=== PATIENT | female | born 1950 | race American Indian/Alaskan Native ===

== ENCOUNTER 2017-01-15 06:50 | Day surgery (SDC) | payer MEDICARE ==
[2017-01-15 07:54] LABS: Basophils % (Auto) 0.7 % (0.0-1.8); Eosinophils % (Auto) 3.9 % (0.0-4.3); Hematocrit 28.5 % (30.3-42.9); Hemoglobin 9.4 gm/dl (10.1-14.3); Mean Corpuscular HGB Conc 33 % (30-34); Mean Corpuscular Hemoglobin 30 pg (28-32); Mean Corpuscular Volume 91 fl (79-97); Platelet Count 202 K/mm3 (140-440); Red Blood Count 3.14 M/mm3 (3.65-5.03); Red Cell Distribution Width 15.5 % (13.2-15.2); White Blood Count 4.4 K/mm3 (4.5-11.0)
[2017-01-15 08:06] LABS: INR 1.02 (0.87-1.13)
[2017-01-15 08:07] LABS: Partial Thromboplastin Time 32.7 Sec. (24.2-36.6)
[2017-01-15] MEDS ORDERED: VERSED IV ONE (08:29)
[2017-01-15] MEDS ORDERED: APRESOLINE ONE (08:29)
[2017-01-15] MEDS ORDERED: SUBLIMAZE IV ONE (08:29)
[2017-01-15 13:09] VITALS: BP 153/76
--- NOTE | 2017-01-15 13:47 | Cat Scan Report ---
CT BIOPSY RENAL LEFT HISTORY: Chronic kidney disease. DESCRIPTION OF PROCEDURE: Informed consent was obtained. Sterile technique was utilized. 1% lidocaine for skin anesthesia. Conscious sedation was accomplished with Versed and fentanyl. The patient was sedated for 12 minutes. Independent cardiorespiratory monitoring by RN. Intraobserver time of [address] guidance, a 17-gauge introducer needle was advanced to the inferior pole of the left kidney. Two 18-gauge core biopsies were obtained. No complications. IMPRESSION: Successful CT-guided biopsy at the inferior pole of the left kidney.
== END 2017-01-15 13:50 | disposition home or self-care (01) ==
LOC: OPU 06:50 → EDSTATUS 08:30 → OPU 13:50
PROVIDERS: ATTEND Internal Medicine Nephrology
DX: N18.3 Chronic kidney disease, stage 3 (moderate) (principal); Z87.891 Personal history of nicotine dependence; Z79.01 Long term (current) use of anticoagulants
CPT/HCPCS: 36415; 50200; 77012; 85025; 85610; 85730; J2250; J3010; J0360

== ENCOUNTER 2018-10-20 11:31 | Day surgery (SDC) | payer MEDICARE ==
[2018-10-20] MEDS ORDERED: HEPARIN/NS 5000 UNIT/500ML(CATH LAB) 500 ML IR ONE (13:42)
[2018-10-20] MEDS ORDERED: HEPARIN 10,000 UNITS/10 ML ONE (13:43)
[2018-10-20] MEDS ORDERED: XYLOCAINE 2% INFILTRATI ONE (13:43)
[2018-10-20] MEDS ORDERED: NACL 0.9% 250ML 250 ML ONE (13:48)
[2018-10-20] MEDS ORDERED: NACL 0.9% 500 ML 500 ML IV SCH (14:00)
[2018-10-20] MEDS ORDERED: ANCEF/STERILE WATER 2 GM/20 ML 2 GM/20 ML SYRINGE IV ONE (14:04)
[2018-10-20] MEDS: VERSED ONE ×2 (14:40→14:44)
[2018-10-20] MEDS: SUBLIMAZE ONE ×2 (14:40→14:47)
--- NOTE | 2018-10-20 15:12 | Short Stay Summary ---
Short Stay Documentation Date of service: 10/20/18 Narrative H&P: 68 year old female with ESRD and permcath malfunction. - History Principal diagnosis: permcath malfunction Past Medical History: dialysis Social history: no significant social history - Allergies and Medications Current Medications: Allergies amlodipine Allergy (Verified 01/15/17 07:47) Rash shellfish derived Adverse Reaction (Verified 01/15/17 08:15) GOUT Flare up Home Medications Medication Instructions Recorded Confirmed Last Taken Type Furosemide [Lasix TAB] 40 mg PO QDAY 09/11/14 10/20/18 10/20/18 08:30 History Ibuprofen [Advil 100 MG tab] 600 mg PO Q6H PRN 09/11/14 10/20/18 01/14/17 History glipiZIDE [Glucotrol] 10 mg PO BID 09/11/14 10/20/18 10/20/18 08:30 History Allopurinol [Zyloprim] 100 mg PO BID 10/20/18 10/20/18 10/20/18 08:30 History AtorvaSTATin [Lipitor] 20 mg PO QHS 10/20/18 10/20/18 10/19/18 History Carvedilol [Coreg] 25 mg PO BID 10/20/18 10/20/18 10/20/18 08:30 History Isosorbide Dinitrate 30 mg PO QDAY 10/20/18 10/20/18 10/20/18 08:30 History Losartan [Cozaar] 100 mg PO QDAY 10/20/18 10/20/18 10/20/18 08:30 History Omeprazole 40 mg PO QDAY 10/20/18 10/20/18 10/20/18 08:30 History cloNIDine [Catapres] 0.2 mg PO TID 10/20/18 10/20/18 10/20/18 08:30 History hydrALAZINE [Apresoline TAB] 100 mg PO TID 10/20/18 10/20/18 10/20/18 08:30 History Active Medications Sodium Chloride (Nacl 0.9% 500 Ml) 500 mls @ 50 mls/hr IV DIRECT MARTI - Physical exam General appearance: no acute distress Lungs: Normal air movement Extremities: normal temperature, normal color, abnormal (permcath without purulence or erythema, but nonfunctional) - Brief post op/procedure progress note Date of procedure: 10/20/18 Pre-op diagnosis: ESRD with permcath malfunction Post-op diagnosis: same Procedure: Permcath exchange Venography SVC angioplasty Anesthesia: local (w/ conscious sedation) Surgeon: KAYODE KLEIN Estimated blood loss: minimal Condition: stable - Hospital course Hospital course: Ready for discharge. - Disposition Condition at discharge: Stable Disposition: [id number] TO HOME OR SELFCARE - Discharge Diagnoses (1) Vascular catheter dysfunction Status: Acute (2) Clotted vascular catheter Status: Acute Short Stay Discharge Plan Activity: advance as tolerated Weight Bearing Status: Weight Bear as Tolerated Diet: renal Wound: keep clean and dry (do not get the catheter wet) Follow up with: DEZ JACKSON MD [Primary Care Provider] - 7 Days
--- NOTE | 2018-10-20 15:12 | Operative Report ---
Operative Report Operative Report: EXAM: 1. Fluoroscopic guided exchange of a right internal jugular tunneled cuffed hemodialysis catheter. 2. Superior venacava venography 3. Angioplasty of the SVC with a 12 mm angioplasty balloon. DATE: 10/20/18 INDICATION: End-stage renal disease with PermCath malfunction. MEDICATIONS: Please see nursing report for full details. 8TH GRADE TEACHER: KAYODE KLEIN MD DEVICES: 19 cm tip to cuff 15 Fr dual lumen hemodialysis catheter ; existing catheter was a 19 cm tip to cuff dual lumen hemodialysis catheter CONTRAST: Please see analyst microbiology lab Report for Full Details PROCEDURE: The risks, benefits, and alternatives were discussed and informed consent was obtained. The patient was transported to the angiography suite in satisfactory/stable condition and was transported onto the angiography table. The patient was prepped and draped in a sterile fashion. The existing PermCath was prepped and draped in a sterile fashion. Heparin was removed from the lumens and then saline was used to flush the lumens. A stiff angled Glidewire was advanced through one of the lumens of the existing PermCath and the wire was passed into the IVC. Lidocaine was used to anesthetize the existing PermCath dermatotomy. Using a hemostat, blunt dissection was used to free the existing cuff. The catheter was partially retr acted. Digital subtraction venography was performed through the other lumen. Over the 0.035 inch wire, the existing PermCath was removed and the wire was cleaned with ChloraPrep. A 7 Sinhala sheath was advanced over the wire. An 12 mm angioplasty balloon was advanced over the wire and used to perform angioplasty of the SVC. Digital subtraction angiography was repeated. The second wire was passed into the IVC. Sheath was removed and wires were cleaned with ChloraPrep. A new PermCath was advanced over the wire and position centrally under fluoroscopic guidance. 2-0 Ethilon suture was used to secure the catheter at the dermatotomy. The catheter was charged with heparin 1000 units per mL of space. Sterile dressing applied. The patient was transferred from the angiography suite back to the floor in stable condition. FINDINGS: 1. Excellent flow was obtained through the dialysis catheter with 20 mL syringes. 2. The new catheter tip is in the right atrium. 3. Superior vena cava venography demonstrates moderate functional narrowing of the SVC. After angioplasty, there is no residual narrowing of the SVC. IMPRESSION: 1. Successful fluoroscopic guided replacement of a right internal jugular tunneled cuffed hemodialysis catheter. 2. Successful angioplasty of the SVC with a 12 mm angioplasty balloon.
[2018-10-20 16:19] VITALS: BP 159/78
== END 2018-10-20 16:40 | disposition home or self-care (01) ==
LOC: CATHLABREC 11:31
PROVIDERS: ATTEND Radiology Diagnostic Radiology
DX: T82.41XA Breakdown (mechanical) of vascular dialysis catheter, initial encounter (principal); E11.22 Type 2 diabetes mellitus with diabetic chronic kidney disease; I12.0 Hypertensive chronic kidney disease with stage 5 chronic kidney disease or end stage renal disease; N18.6 End stage renal disease; E78.00 Pure hypercholesterolemia, unspecified; J44.9 Chronic obstructive pulmonary disease, unspecified; G47.30 Sleep apnea, unspecified; M19.90 Unspecified osteoarthritis, unspecified site; M10.9 Gout, unspecified; E66.9 Obesity, unspecified; Z68.36 Body mass index [BMI] 36.0-36.9, adult; Z79.899 Other long term (current) drug therapy; Z79.84 Long term (current) use of oral hypoglycemic drugs; Z91.013 Allergy to seafood; Z88.8 Allergy status to other drugs, medicaments and biological substances; Z90.710 Acquired absence of both cervix and uterus; Z90.49 Acquired absence of other specified parts of digestive tract; Z96.653 Presence of artificial knee joint, bilateral; Z87.891 Personal history of nicotine dependence; Z85.118 Personal history of other malignant neoplasm of bronchus and lung; Y83.1 Surgical operation with implant of artificial internal device as the cause of abnormal reaction of the patient, or of later complication, without mention of misadventure at the time of the procedure; Z80.0 Family history of malignant neoplasm of digestive organs; Z80.1 Family history of malignant neoplasm of trachea, bronchus and lung
CPT/HCPCS: 36415; 36581; 37248; 77001; 84132; 99156; 99157; C1725; C1750; C1769; J0690; J1644; J2250; J3010; J7050; Q9967